=== PATIENT | male | born 1960 | race Hispanic/Latino ===

== ENCOUNTER 2020-12-29 12:56 | Outpatient (CLI) | payer OTHER ==
--- NOTE | 2020-12-29 14:16 | XRay Report ---
RIGHT ANKLE 3 VIEWS INDICATION: Right ankle pain. COMPARISON: None. IMPRESSION: No acute osseous or soft tissue abnormality. No significant DJD. BILATERAL HANDS INDICATION: BILATERAL HAND PAIN. COMPARISON: None. IMPRESSION: Within the right hand chronic healed deformities of the fifth metacarpal and proximal ph alanx of the fifth digit is suspected, correlate with history. Advanced degenerative changes are iden tified at the distal interphalangeal joint of the index finger which may represent erosive osteoarthr itis. Bony structures and joint spaces within the left hand are unremarkable. RIGHT KNEE 3 VIEWS INDICATION: Right knee pain. COMPARISON: None. IMPRESSION: No acute osseous or soft tissue abnormality. No significant DJD. LUMBOSACRAL SPINE 3 VIEWS INDICATION: Back pain. COMPARISON: None. IMPRESSION: Normal alignment. 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 Severe discogenic DJD at L5-S1. The remaining disc levels are unremarkable. There is mild diffuse facet arthropathy. The SI joints are un remarkable. No acute osseous or soft tissue abnormality. Signer Name: Adeel Bobo Jr, MD Signed: 12/29/2020 2:12 PM Workstation Name: [id number]
== END 2020-12-29 12:57 | disposition home or self-care (01) ==
LOC: XRAY 12:56
PROVIDERS: ATTEND Internal Medicine
DX: M19.042 Primary osteoarthritis, left hand (principal); M19.041 Primary osteoarthritis, right hand; M25.511 Pain in right shoulder; M25.561 Pain in right knee; M25.571 Pain in right ankle and joints of right foot
CPT/HCPCS: 72100